=== PATIENT | female | born 1965 | race Caucasian/White ===

== ENCOUNTER → 2016-12-11 | Day surgery (SDC) | payer BC ==
[~2016-12-11] MED LIST: ACETAMINOPHEN PO; ASPIRIN81 M1 PO; DIFLUNISAL500 MG PO; LEVOTHYROXINE25 MCG PO; LORTAB 101 TAB 10/5 PO; MYRBETRIQ50 MG PO; PROZAC PO; PROZAC40 MG PO; RELAFEN500 MG PO; SINGULAIR PO; TROSPIUM CHLORI60 M1 PO; VITAMIN D32000 UNIT PO
--- NOTE | ~2016-12-11 | OR ---
Unit #: [id number] #: [id number] Patient: LLOYD ALVES [id number] [address] [place], [place] [address] [id number] O MR#: [id number] NAME: LLOYD ALVES. ROOM: Date of Procedure: 12/11/2016 Admission Date: 12/11/2016 Surgeon: Trev Mckeon M.D. : 1965 Attending Physician: Trev Mckeon M.D. Primary Care Physician: Rosa Muñoz A.P.R.N. [facility]ENTER OPERATIVE NOTE PROCEDURE PERFORMED Lumbar epidural steroid injection under x-ray guided needle placement with provider administered conscious sedation. PREOPERATIVE DIAGNOSES 1. Acute lumbar radiculitis. 2. Spinal stenosis, lumbosacral spine. 3. Degenerative joint disease, lumbosacral spine. 4. Degenerative disk disease, lumbosacral spine. 5. Facet arthropathy, lumbosacral spine. 6. Facet arthralgia, lumbosacral spine. INDICATIONS FOR PROCEDURE The patient presents today with complaints compatible with an acute radiculitis as well as an acute facet arthropathy neither of which have responded to ongoing conservative measures. She is in possession of an MRI report, which shows diffuse disease at multiple levels, however, her disease is most notably worse in the epidural space at the L3-L4 level. Following review of her films and discussing risks and benefits of proceeding today with a lumbar approach epidural steroid injection, the patient agreed this would be the appropriate course of action. DESCRIPTION OF PROCEDURE She was then taken to the operating room, where she was prepped and draped in a sterile manner. Standard monitors were applied. She was sedated with 2 mg of IV Versed initially and required additional 2 mg of IV Versed and 2 mL of IV fentanyl throughout the duration of procedure. Lumbar epidural space was accessed at the L3-L4 level with much difficulty due to the narrowness of the interspace under x-ray guidance. Needle placement was confirmed with the injection of 2 mL of Omnipaque. There was good superior and inferior flow at this L3-L4 level. Following successful needle placement at the L3-L4 level, which required an x-ray time of 36 seconds, the patient received an injectate containing 2 mL of normal saline, 2 mL of 0.25% bupivacaine, and 80 mg of methylprednisolone. She tolerated this procedure well. She was discharged home with followup instructions, which include to return to this clinic on Friday01/06/2017. Dictated by... Rudy Barnett/mary Unit #: [id number] #: [id number] Patient: LLOYD ALVES TD: 12/12/2016 02:45 JOB #: [id number] [facility] OPERATIVE NOTE X Gino Mckeon MD PROCEDURE OPERATIVE NOTE
== END | disposition home or self-care (01) ==
LOC: CCSC 08:24
DX: G89.29 Other chronic pain (principal); M51.17 Intervertebral disc disorders with radiculopathy, lumbosacral region; M47.27 Other spondylosis with radiculopathy, lumbosacral region; M48.07 Spinal stenosis, lumbosacral region
CPT/HCPCS: J1040; J2250; J3010

== ENCOUNTER → 2017-01-06 | Day surgery (SDC) | payer BC ==
--- NOTE | ~2017-01-06 | OR ---
Unit #: [id number] #: [id number] Patient: LLOYD ALVES [id number] [address] [place], [place] [address] [id number] MR#: [id number] NAME: LLOYD ALVES. ROOM: Date of Procedure: 01/06/2017 Admission Date: 01/06/2017 Surgeon: Trev Mckeon M.D. : 1965 Attending Physician: Trev Mckeon M.D. Primary Care Physician: Rosa Muñoz A.P.R.N. [facility] OPERATIVE NOTE PROCEDURE PERFORMED Lumbar epidural steroid injection under x-ray guided needle placement with provider administered conscious sedation. PREOPERATIVE DIAGNOSES 1. Acute lumbar radiculitis. 2. Spinal stenosis, lumbosacral spine. 3. Multiple level degenerative disk disease. 4. Degenerative joint disease. INDICATIONS FOR PROCEDURE The patient is status post one previous lumbar approach epidural steroid injection for an acute radiculitis, which had failed to respond to conservative measures. She states she got good results with almost 100% initial relief; however, over the intervening time between her initial visit and her visit today, she has had almost complete return of her symptoms. She is also pending an appointment with [facility] for potential facet joint injections with radiofrequency ablation as this patient has fairly severe multiple level facet arthrosis. After discussing risks and benefits of proceeding today with second lumbar approach epidural steroid injection at this time utilizing a dual needle technique, the patient agreed this would be the appropriate course of action. DESCRIPTION OF PROCEDURE She was then taken to the operating room, where she was prepped and draped in sterile manner. Standard monitors were applied. She was sedated initially with 2 mg of IV Versed and required an additional 2 mg of IV Versed and 1 mL of IV fentanyl throughout the duration of the procedure. The L5-S1 level was accessed using loss of resistance technique and x-ray guidance. Needle placement was confirmed with the injection of 2 mL of Omnipaque, approximately 60% of dye flow was in the superior direction. Following this, the needle was accessed at the L2-L3 level again using loss of resistance technique and x-ray guidance. Dye flow at this level was approximately 60% in the inferior direction. Following successful needle placement confirmation with total x-ray time of 19 seconds, the patient received an injectate containing 4 mL normal saline and 40 mg of methylprednisolone at each level for a total injectate volume of 8 mL normal saline and 80 mg of methylprednisolone. She tolerated this procedure well. She was discharged home with followup instructions, which include an offer to return to this clinic as early as 04/30/2017 if we could be of further service to her. Unit #: [id number] #: [id number] Patient: LLOYD ALVES Dictated by... Rudy Barnett/mary TD: 01/06/2017 23:19 JOB #: [id number] [facility] OPERATIVE NOTE Page 1 of 1 X Gino Mckeon MD X PROCEDURE OPERATIVE NOTE
== END | disposition home or self-care (01) ==
LOC: CCSC 08:06
DX: M19.90 Unspecified osteoarthritis, unspecified site (principal); M51.16 Intervertebral disc disorders with radiculopathy, lumbar region; M48.07 Spinal stenosis, lumbosacral region; M47.26 Other spondylosis with radiculopathy, lumbar region; Z98.1 Arthrodesis status
CPT/HCPCS: J1040; J2250; J3010

== ENCOUNTER → 2017-04-21 | Day surgery (SDC) | payer BC ==
--- NOTE | ~2017-04-21 | OR ---
Unit #: [id number] #: [id number] Patient: LLOYD ALVES [id number] [address] [place], [place] [address] [id number] O MR#: [id number] NAME: LLOYD ALVES. ROOM: Date of Procedure: 04/21/2017 Admission Date: 04/21/2017 Surgeon: Trev Mckeon M.D. : 1965 Attending Physician: Gino Mckeon Primary Care Physician: Rosa Muñoz A.P.R.N. SUR[facility]ERY CENTER OPERATIVE NOTE PROCEDURE PERFORMED Lumbar epidural steroid injection under x-ray guided needle placement with provider administered conscious sedation. PREOPERATIVE DIAGNOSES 1. Acute lumbar radiculitis. 2. Spinal stenosis, lumbosacral spine. 3. Degenerative joint disease, lumbosacral spine. 4. Degenerative disk disease, lumbosacral spine. INDICATIONS FOR PROCEDURE The patient presents today with a longstanding history of chronic lumbar radicular as well as chronic lumbar facet arthralgia pain. She has been successfully treated in the past with both radiofrequency ablation and lumbar epidural steroid injections. Her usual amount of relief from a lumbar epidural steroid injection is 80% for 8 to 10 weeks. She is currently approximately 4 months out from her last epidural steroid injection. She states she has a 2 to 4 weeks history of crescendo pattern lumbar radicular pain, which has failed to respond to her ongoing continuous conservative measures consisting of medications and self-directed physical activity. After discussing risks and benefits of proceeding today with lumbar approach epidural steroid injection utilizing dual needle access technique, the patient agreed this would be the appropriate course of action. DESCRIPTION OF PROCEDURE She was then taken to the operating room, where she was prepped and draped in a sterile manner. Standard monitors were applied. She was sedated initially with 2 mg of IV Versed and required an additional 2 mg of IV Versed as well as 2 mL of IV fentanyl throughout the duration of procedure. Lumbar epidural space accessed at L5-S1 with these and little bit more difficulty at the L3-L4 level. Total x-ray time for this dual needle placement was 18 seconds. Needle placement was confirmed at each level with the injection of 2 mL of Omnipaque. There was good superior and inferior flow at both levels of needle placement. Following successful needle placement confirmation, the patient received an injectate containing 4 mL normal saline and 80 mg of methylprednisolone at each level for a total injectate volume today of 8 mL normal saline and 80 mg of methylprednisolone. She tolerated this procedure well. She was discharged home with followup instructions, which include an offer to return to this clinic as early as 07/30/2017 if we could be of further service to her. Unit #: [id number] #: [id number] Patient: LLOYD ALVES Dictated by... Rudy Barnett/mary TD: 04/21/2017 15:27 JOB #: [id number] [facility]ENTER OPERATIVE NOTE Page 1 of 1 X Gino Mckeon MD X PROCEDURE OPERATIVE NOTE
== END | disposition home or self-care (01) ==
LOC: CCSC 08:15
DX: G89.29 Other chronic pain (principal); M51.17 Intervertebral disc disorders with radiculopathy, lumbosacral region; M47.27 Other spondylosis with radiculopathy, lumbosacral region; M48.07 Spinal stenosis, lumbosacral region; Z79.899 Other long term (current) drug therapy; Z98.1 Arthrodesis status; Z98.890 Other specified postprocedural states
CPT/HCPCS: J1040; J2250; J3010